=== PATIENT | male | born 1955 | race Two or more races ===

== ENCOUNTER 2025-03-19 12:29 | Emergency (ER) | payer MEDICARE, OTHER ==
[~2025-03-19] VITALS: Ht 172.7 cm; Wt 83.9 kg
[2025-03-19 12:58] LABS: PLATELET COUNT (AUTO) 147 K/uL (150-450); RED BLOOD CELL COUNT(AUTO) 2.74 MIL/uL (4.5-6.0); RED CELL DISTRIBUTION WIDTH 13.5 % (11.5-15.0); WHITE BLOOD COUNT (AUTO) 8.0 K/uL (4.3-11.0)
[2025-03-19 13:03] LABS: CALCIUM, SERUM 7.9 mg/dL (8.5-10.1); CREATININE 1.7 mg/dL (0.6-1.3); SODIUM SERUM 134 mmol/L (136-145); UREA NITROGEN, BLOOD 38 mg/dL (7-18)
[2025-03-19 13:07] LABS: INR 1.5 (0.91-1.10)
[2025-03-19 13:20] LABS: ASPARTATE AMINOTRANSFERASE 77 U/L (15-37); TOTAL PROTEIN, SERUM 7.8 g/dL (6.4-8.2)
[2025-03-19 13:48] LABS: EOSINOPHILS % (MANUAL) 1 % (0-4); LYMPHOCYTES % (MANUAL) 10 % (16-48); MONOCYTES % (MANUAL) 5 % (0-11.0); NEUTROPHILS % (MANUAL) 84 (42-76); PLATELET ESTIMATE DECREASED
[2025-03-19] MEDS ORDERED: SODIUM ZIRCONIUM CYCLOSILICATE 10 GM POWD.PACK ONE (14:00)
[2025-03-19] MEDS: SODIUM ZIRCONIUM CYCLOSILICATE 10 GM POWD.PACK PO ONE (14:10)
[2025-03-19 16:31] VITALS: BP 118/62; TEMP 97.9; O2SAT 99
== END 2025-03-19 16:32 | disposition home or self-care (01) ==
LOC: ER 12:43
DX: R18.8 Other ascites (principal); K74.60 Unspecified cirrhosis of liver; E87.5 Hyperkalemia; E11.9 Type 2 diabetes mellitus without complications
CPT/HCPCS: 36415; 49083; 80053-TC; 85027-TC; 85730-TC

== ENCOUNTER 2025-04-02 01:49 | Inpatient (IN) | payer MEDICARE, OTHER ==
[~2025-04-02] VITALS: Ht 172.7 cm; Wt 76.7 kg
[2025-04-02] VITALS (7 sets, daily range): BP systolic 105–125; BP diastolic 44–56; TEMP 97.5–98.2; O2SAT 100
[2025-04-02 02:34] LABS: PLATELET COUNT (AUTO) 129 K/uL (150-450); RED BLOOD CELL COUNT(AUTO) 2.76 MIL/uL (4.5-6.0); RED CELL DISTRIBUTION WIDTH 14.1 % (11.5-15.0); WHITE BLOOD COUNT (AUTO) 9.2 K/uL (4.3-11.0)
[2025-04-02 02:45] LABS: CALCIUM, SERUM 8.5 mg/dL (8.5-10.1); CREATININE 2.9 mg/dL (0.6-1.3); SODIUM SERUM 135.0 mmol/L (136-145); UREA NITROGEN, BLOOD 58.0 mg/dL (7-18)
[2025-04-02 02:48] LABS: INR 1.5 (0.91-1.10)
[2025-04-02] MEDS ORDERED: ONDANSETRON HCL/PF 4 MG/2 ML VIAL IVP PRN (03:00)
[2025-04-02] MEDS ORDERED: MAGNESIUM HYDROXIDE 30 ML UDC PO PRN (03:00)
[2025-04-02] MEDS ORDERED: CEFTRIAXONE 1 G in IV D5W 50 ML IV SCH (03:00)
[2025-04-02] MEDS ORDERED: MAG HYDROX/AL HYDROX/SIMETH 30 ML UDC PO PRN (03:00)
[2025-04-02] MEDS ORDERED: AZITHROMYCIN 500 MG in IV D5W 250 ML IV SCH (03:00)
[2025-04-02] MEDS: IV NS 0.9% 1,000 ML BAG IV ONE (03:21)
[2025-04-02 03:48] LABS: ASPARTATE AMINOTRANSFERASE 72.0 U/L (15-37); TOTAL PROTEIN, SERUM 7.7 g/dL (6.4-8.2)
[2025-04-02 03:59] LABS: SERUM AMMONIA 120.0 umol/L (11-32)
[2025-04-02] MEDS ORDERED: CEFTRIAXONE 1GM BAG (ER ONLY) 50 ML IV ONE (04:13)
[2025-04-02] MEDS: CEFTRIAXONE 1 G in IV D5W 50 ML IV SCH (05:04)
[2025-04-02] MEDS ORDERED: AZITHROMYCIN 500 MG VIAL ONE (05:31)
[2025-04-02] MEDS: AZITHROMYCIN 500 MG in IV D5W 250 ML IV SCH (06:28)
[2025-04-02] MEDS: PANTOPRAZOLE 40 MG VIAL IV SCH (08:25)
[2025-04-02] MEDS: ZINC SULFATE 220 MG CAPSULE PO SCH (13:00)
[2025-04-02] MEDS ORDERED: ALBUMIN 25% 25 GM in PREMIX 1 EA IV SCH (15:00)
[2025-04-02] MEDS: ALBUMIN 25% 25 GM in PREMIX 1 EA IV SCH ×3 (15:16→20:40)
[2025-04-02 16:00] LABS: CALCIUM, SERUM 8.9 mg/dL (8.5-10.1); CREATININE 2.5 mg/dL (0.6-1.3); SODIUM SERUM 139.0 mmol/L (136-145); UREA NITROGEN, BLOOD 56.0 mg/dL (7-18)
[2025-04-02] MEDS ORDERED: ALBUMIN 25% 12.5 GM/50 ML BOTTLE IV STA (16:25)
[2025-04-02] MEDS: RIFAXIMIN 550 MG TABLET PO SCH (16:35)
[2025-04-02] MEDS: SODIUM ZIRCONIUM CYCLOSILICATE 10 GM POWD.PACK PO SCH (16:35)
[2025-04-02] MEDS ORDERED: ALBUMIN 25% 25 GM in PREMIX 1 EA IV ONE (17:00)
[2025-04-02 18:09] LABS: PROTEIN, BODY FLUID 1.2 G/DL
[2025-04-02 19:11] LABS: APPEARANCE,SPUN,BODY FLUID CLEAR (CLEAR); TOTAL VOLUME,BODY FLUID 6500 mL; WBC, BODY FLUID 481 /cu. mm. (0-200)
[2025-04-02 19:14] LABS: MONOCYTES,BODY FLUID 4 %
[2025-04-02] MEDS: diphenhydrAMINE HCL ELIX 25 MG/10 ML UDC PO PRN (20:52)
[2025-04-02] MEDS: ACETAMINOPHEN 325 MG TABLET PO PRN (23:08)
[2025-04-03] MEDS: HYDROCODONE/APAP 10/325MG TABLET PO PRN (02:57)
[2025-04-03] MEDS: KETOROLAC TROMETHAMINE 15 MG/ML VIAL IV ONE (04:11)
[2025-04-03 06:55] LABS: PLATELET COUNT (AUTO) 100 K/uL (150-450); RED BLOOD CELL COUNT(AUTO) 2.26 MIL/uL (4.5-6.0); RED CELL DISTRIBUTION WIDTH 13.7 % (11.5-15.0); WHITE BLOOD COUNT (AUTO) 7.1 K/uL (4.3-11.0)
[2025-04-03 07:03] LABS: ASPARTATE AMINOTRANSFERASE 46.0 U/L (15-37); CALCIUM, SERUM 8.4 mg/dL (8.5-10.1); CREATININE 2.1 mg/dL (0.6-1.3); PHOSPHORUS 4.0 mg/dL (2.5-4.9); SODIUM SERUM 137.0 mmol/L (136-145); TOTAL PROTEIN, SERUM 6.9 g/dL (6.4-8.2); UREA NITROGEN, BLOOD 55.0 mg/dL (7-18)
[2025-04-03 07:11] LABS: IRON, SERUM 110.0 ug/dl (50-175)
[2025-04-03 07:12] LABS: CREATINE KINASE, TOTAL 51 U/L (39-308)
[2025-04-03 07:53] VITALS: BP 105/66; TEMP 97.9; O2SAT 99
[2025-04-03 08:00] VITALS: BP 105/66; TEMP 97.9; O2SAT 99
[2025-04-03] MEDS: ALBUMIN 25% 25 GM in PREMIX 1 EA IV SCH (11:42)
[2025-04-03] MEDS: LACTULOSE 10 G/15 ML UDC (PYXIS) PO PRN (13:45)
[2025-04-03 16:00] VITALS: BP 119/69; TEMP 98; O2SAT 100
[2025-04-03 17:56] VITALS: BP 119/69; TEMP 98; O2SAT 100
[2025-04-03 18:38] VITALS: BP_SYST 90; BP_SYST 95; BP_DIAS 56; BP_DIAS 63
[2025-04-03 20:00] VITALS: BP 107/42; TEMP 98.1; O2SAT 98
[2025-04-04 05:08] LABS: PTH, INTACT 53 pg/mL (15-65)
[2025-04-04 06:27] LABS: TOTAL PROTEIN,PERITONEAL FLUID 1.16
[2025-04-04 06:53] LABS: PLATELET COUNT (AUTO) 93 K/uL (150-450); RED BLOOD CELL COUNT(AUTO) 2.02 MIL/uL (4.5-6.0); RED CELL DISTRIBUTION WIDTH 13.6 % (11.5-15.0); WHITE BLOOD COUNT (AUTO) 6.7 K/uL (4.3-11.0)
[2025-04-04 07:02] LABS: SERUM AMMONIA 37.0 umol/L (11-32)
[2025-04-04 07:18] LABS: ASPARTATE AMINOTRANSFERASE 49.0 U/L (15-37); CALCIUM, SERUM 8.6 mg/dL (8.5-10.1); CREATININE 1.7 mg/dL (0.6-1.3); PHOSPHORUS 3.6 mg/dL (2.5-4.9); SODIUM SERUM 134.0 mmol/L (136-145); TOTAL PROTEIN, SERUM 6.6 g/dL (6.4-8.2); UREA NITROGEN, BLOOD 51.0 mg/dL (7-18)
[2025-04-04 08:00] VITALS: BP 120/56; TEMP 99.3; O2SAT 95
[2025-04-04] MEDS ORDERED: SPIR100T5 PO (09:39)
[2025-04-04] MEDS ORDERED: LACT10SO29 PO (09:39)
[2025-04-04] MEDS ORDERED: FURO-144 PO (09:39)
[2025-04-04] MEDS: PANTOPRAZOLE 40 MG TABLET.DR PO SCH (10:16)
[2025-04-04 16:20] LABS: LYMPHOCYTES % (MANUAL) 12 % (16-48); MONOCYTES % (MANUAL) 8 % (0-11.0); NEUTROPHILS % (MANUAL) 80 (42-76); PLATELET ESTIMATE DECREASED
[2025-04-05] MEDS ORDERED: AZITHROMYCIN 250 MG TABLET PO SCH (06:00)
== END 2025-04-04 12:00 | disposition home health service (06) | DRG 432 ==
LOC: ER 02:11 → MED 03:20
PROVIDERS: ADMIT Nurse Practitioner Family; ATTEND Nurse Practitioner Family
PROC: 0W9G3ZX Drainage of Peritoneal Cavity, Percutaneous Approach, Diagnostic (ICD-10-PCS; principal; 2025-04-02)
PROC: BF45ZZZ Ultrasonography of Liver (ICD-10-PCS; 2025-04-02)
DX: K74.60 Unspecified cirrhosis of liver (principal); K76.7 Hepatorenal syndrome; E44.0 Moderate protein-calorie malnutrition; R18.8 Other ascites; N17.9 Acute kidney failure, unspecified; E87.1 Hypo-osmolality and hyponatremia; E72.20 Disorder of urea cycle metabolism, unspecified; J98.11 Atelectasis; K72.10 Chronic hepatic failure without coma; E11.9 Type 2 diabetes mellitus without complications; D69.6 Thrombocytopenia, unspecified; E11.22 Type 2 diabetes mellitus with diabetic chronic kidney disease; N18.9 Chronic kidney disease, unspecified; I12.9 Hypertensive chronic kidney disease with stage 1 through stage 4 chronic kidney disease, or unspecified chronic kidney disease; R26.9 Unspecified abnormalities of gait and mobility; D53.9 Nutritional anemia, unspecified; E88.09 Other disorders of plasma-protein metabolism, not elsewhere classified; L29.9 Pruritus, unspecified; E87.5 Hyperkalemia; M89.8X9 Other specified disorders of bone, unspecified site
CPT/HCPCS: 36415; 49083; 71045-TC; 76700-TC; 80048-TC; 80053-TC; 80076-TC; 82040-TC; 82140-TC; 82550-TC; 82607-TC; 82728-TC; 83540-TC; 83735-TC; 83970; 84100-TC; 84155; 84165; 84439-TC; 84443-TC; 85025-TC; 85027-TC; 85730-TC; 87040-TC; 87070-TC; 89051-TC; 97110-TC; 97116-TC; 97530-TC; A4216; A4223; G0378; J0456; J0696; J1885; J2470; J7040; J7060; P9047; Q0163